=== PATIENT | male | born 1945 | race Caucasian/White ===

== ENCOUNTER 2019-04-21 01:41 | Inpatient (IN) | payer SELFPAY ==
[~2019-04-21] VITALS: Ht 172.7 cm; Wt 61.7 kg
[2019-04-21] MEDS ORDERED: NITROGLYCERIN OINT 1GM/INCH UDPKT TD ONE (03:30)
[2019-04-21] MEDS ORDERED: ASPIRIN 81MG TABLET PO ONE (03:30)
[2019-04-21 03:38] LABS: HEMATOCRIT. 28.3 % (42.0-52.0); HEMOGLOBIN. 9.1 g/dL (14.0-18.0); MEAN CORPUSCULAR HEMOGLOBIN 30.3 pg (28.0-32.0); MEAN CORPUSCULAR VOLUME 94.5 fL (80.0-94.0); MEAN PLATELET VOLUME 7.7 fl (7.4-10.4); PLATELET 258 x1000/uL (130-400); RED BLOOD CELL COUNT 2.99 mill/uL (4.7-6.1); RED CELL DISTRIBUTION WIDTH 13.7 % (11.6-14.6)
[2019-04-21 03:41] LABS: CHLORIDE 109 mEq/L (98-107)
[2019-04-21 03:48] LABS: PROTHROMBIN TIME 11.3 sec (9.6-11.0)
[2019-04-21] MEDS ORDERED: SODIUM BICARBONATE 8.4% 1 MEQ/ML 50ML SYR IV ONE (05:15)
[2019-04-21] MEDS ORDERED: ALBUTEROL (0.083%) 2.5MG/3ML NEB HHN ONE (05:15)
[2019-04-21] MEDS ORDERED: DEXTROSE 50% WATER 50ML SYRINGE IV ONE (05:15)
[2019-04-21] MEDS ORDERED: INSULIN REGULAR (HUMULIN R) 300UNITS/3ML IV ONE (05:15)
[2019-04-21] MEDS ORDERED: GUAIFENESIN 200MG/10ML SUGAR FREE UDC PO PRN (06:45)
[2019-04-21] MEDS ORDERED: HYDROCODONE/ACETAMINOPHEN 5/325MG TABLET PO PRN (06:45)
[2019-04-21] MEDS ORDERED: ACETAMINOPHEN 325MG TABLET PO PRN (06:45)
[2019-04-21] MEDS ORDERED: MORPHINE SULFATE 2 MG/ML CPJ (NOT FOR IM USE) IV PRN (06:45)
[2019-04-21] MEDS ORDERED: MAGNESIUM/ALUMINUM HYDROXIDE/SIMETHICONE 30ML UDC PO PRN (06:45)
[2019-04-21] MEDS ORDERED: CLONIDINE 0.1MG TABLET PO PRN (06:45)
[2019-04-21] MEDS ORDERED: DOCUSATE SODIUM 100MG CAPSULE PO PRN (06:45)
[2019-04-21] MEDS ORDERED: DIPHENHYDRAMINE 50MG/ML VIAL IV PRN (06:45)
[2019-04-21 07:14] LABS: PLATELET ESTIMATE NORMAL
[2019-04-21 08:43] LABS: T4 FREE 1.28 ng/dL (0.76-1.46)
[2019-04-21] MEDS: AMLODIPINE 10MG TABLET PO SCH (09:00)
[2019-04-21] MEDS: CITRIC ACID/SODIUM CITRATE SOLN 30ML UDC PO SCH ×2 (09:00→17:41)
[2019-04-21 09:10] LABS: BG BASE EXCESS -12.8 mmol/L (-2.0-2.0); BG CARBOXYHEMOGLOBIN 0.7 % (0.5-1.5); BG DEOXYHEMOGLOBIN 3.9 % (0.0-5.0); BG FRACTION INSPIRED OXYGEN 21; BG HCO3 ACT 13.2 mmol/L (22.0-26.0); BG METHEMOGLOBIN 0.3 % (0.0-1.5); BG OXYGEN SATURATION 96.1 % (92.0-98.5); BG OXYHEMOGLOBIN 95.1 % (94.0-97.0); BG PCO2 30.8 mmHg (35.0-45.0); BG PH 7.251 (7.350-7.450); BG SAMPLE SITE RIGHT RADIAL; BG TOTAL HEMOGLOBIN 8.2 g/dL (12.0-18.0); BG VENT MODE ROOM AIR
[2019-04-21 09:24] LABS: CREATINE KINASE 60 IU/L (39-308)
[2019-04-21] MEDS: FUROSEMIDE 40MG/4ML VIAL IVP SCH (10:30)
[2019-04-21] MEDS ORDERED: SODIUM POLYSTYRENE SULFONATE 15 G/60 ML BOT PO STA (10:30)
[2019-04-21] MEDS: ENOXAPARIN 30MG/0.3ML SYR SUBCUT SCH (11:32)
[2019-04-21 13:47] LABS: CREATINE KINASE MB FRACTION 2.3 ng/mL (0.5-3.6)
[2019-04-21 16:00] VITALS: BP 128/59
[2019-04-21] MEDS ORDERED: PRAZ1CAP5 PO (16:36)
[2019-04-21] MEDS ORDERED: SACU1TAB7 PO ×2 (16:36)
[2019-04-21] MEDS ORDERED: LACT1CAP97 PO (16:36)
[2019-04-21] MEDS ORDERED: TRAM150C25 PO (16:36)
[2019-04-21] MEDS ORDERED: AMLO5TAB88 PO (16:36)
[2019-04-21] MEDS ORDERED: CLOP75TA33 PO (16:36)
[2019-04-21 16:49] VITALS: BP 128/59
[2019-04-21] MEDS ORDERED: DEXTROSE 50% WATER 50ML SYRINGE IV PRN (17:15)
[2019-04-21] MEDS: BLOOD SUGAR DIAGNOSTIC STRIP TEST SCH ×2 (17:19→21:05)
[2019-04-21] MEDS: ONDANSETRON HCL 4MG/2ML INJ IV PRN (17:40)
[2019-04-21] MEDS: INSULIN LISPRO 100 UNITS/ML SUBCUT SCH ×2 (17:46→21:05)
[2019-04-21] MEDS ORDERED: DEXTROSE 50% WATER 50ML SYRINGE IV NR (18:39)
[2019-04-21] MEDS ORDERED: SODIUM BICARBONATE 8.4% 1 MEQ/ML 50ML SYR IV NR (18:39)
[2019-04-21] MEDS ORDERED: INSULIN REGULAR (HUMULIN R) UD 100 UNITS/ML SYR IV NR (19:00)
[2019-04-21 20:00] VITALS: BP 126/57
[2019-04-22] VITALS (9 sets, daily range): BP systolic 112–153; BP diastolic 53–75
[2019-04-22 01:42] LABS: CREATINE KINASE MB FRACTION 1.7 ng/mL (0.5-3.6)
[2019-04-22] MEDS: SODIUM POLYSTYRENE SULFONATE 15 G/60 ML BOT PO NR (02:10)
[2019-04-22] MEDS ORDERED: DIGOXIN 500MCG/2ML AMP IV SCH (02:45)
[2019-04-22] MEDS ORDERED: NON FORMULARY PATIENT HOME MED XX SCH (04:00)
[2019-04-22] MEDS ORDERED: DILTIAZEM HCL 125 MG in DEXT 5% WATER 100 ML IV SCH (04:30)
[2019-04-22] MEDS: BLOOD SUGAR DIAGNOSTIC STRIP TEST SCH ×4 (06:36→21:00)
[2019-04-22] MEDS: INSULIN LISPRO 100 UNITS/ML SUBCUT SCH ×4 (06:36→21:00)
[2019-04-22] MEDS: FUROSEMIDE 40MG/4ML VIAL IVP SCH (08:28)
[2019-04-22] MEDS: AMLODIPINE 10MG TABLET PO SCH (08:29)
[2019-04-22] MEDS: CITRIC ACID/SODIUM CITRATE SOLN 30ML UDC PO SCH ×3 (08:29→16:41)
[2019-04-22] MEDS: ONDANSETRON HCL 4MG/2ML INJ IV PRN ×2 (08:36→18:09)
[2019-04-22 10:10] LABS: ANTI-NUCLEAR ANTIBODIES DIRECT Positive (Negative)
[2019-04-22] MEDS: ENOXAPARIN 30MG/0.3ML SYR SUBCUT SCH (11:00)
[2019-04-22] MEDS ORDERED: SODIUM BICARBONATE 8.4% 1 MEQ/ML 50ML SYR IV NR (12:48)
[2019-04-22] MEDS ORDERED: DEXTROSE 50% WATER 50ML SYRINGE IV NR (12:48)
[2019-04-22] MEDS ORDERED: ENOXAPARIN 60MG/0.6ML SYR SUBCUT SCH (14:00)
[2019-04-22] MEDS ORDERED: LIDOCAINE HCL 1% 20ML VIAL (Pyxis) INJ ONE (14:37)
[2019-04-22] MEDS ORDERED: SODIUM BICARBONATE 4% (2.4MEQ) 5ML VIAL IV ONE (14:37)
[2019-04-22] MEDS ORDERED: INSULIN REGULAR (HUMULIN R) UD 100 UNITS/ML SYR IV NR (15:00)
[2019-04-22] MEDS ORDERED: HEPARIN 1000 UNITS/ML 10ML ONE (15:01)
[2019-04-22] MEDS ORDERED: ENOXAPARIN 30MG/0.3ML SYR SUBCUT NR (21:00)
[2019-04-22] MEDS: DILTIAZEM HCL 125 MG in DEXT 5% WATER 100 ML IV SCH (22:33)
[2019-04-23] VITALS (25 sets, daily range): BP systolic 114–150; BP diastolic 46–84
[2019-04-23] MEDS: METOPROLOL TARTRATE 50MG TABLET PO SCH ×3 (01:15→22:20)
[2019-04-23] MEDS: SODIUM POLYSTYRENE SULFONATE 15 G/60 ML BOT PO NR (02:42)
[2019-04-23] MEDS: INSULIN LISPRO 100 UNITS/ML SUBCUT SCH ×4 (05:56→22:18)
[2019-04-23] MEDS: BLOOD SUGAR DIAGNOSTIC STRIP TEST SCH ×4 (05:56→22:01)
[2019-04-23 06:29] LABS: LYMPHOCYTES % 7.6 % (20.0-50.0); MEAN CORPUSCULAR HEMOGLOBIN 31.6 pg (28.0-32.0); MEAN CORPUSCULAR VOLUME 91.7 fL (80.0-94.0); MEAN PLATELET VOLUME 7.6 fl (7.4-10.4); MONOCYTES % 10.2 % (2.0-8.0); NEUTROPHILS % 82.2 % (40.0-76.0); PLATELET 254 x1000/uL (130-400); RED BLOOD CELL COUNT 2.25 mill/uL (4.7-6.1); RED CELL DISTRIBUTION WIDTH 13.2 % (11.6-14.6)
[2019-04-23 08:14] LABS: HEMATOCRIT. 20.6 % (42.0-52.0); HEMOGLOBIN. 7.1 g/dL (14.0-18.0)
[2019-04-23] MEDS: FUROSEMIDE 40MG/4ML VIAL IVP SCH (09:00)
[2019-04-23] MEDS: CITRIC ACID/SODIUM CITRATE SOLN 30ML UDC PO SCH ×3 (09:00→17:33)
[2019-04-23] MEDS: AMLODIPINE 10MG TABLET PO SCH (09:01)
[2019-04-23 20:53] LABS: HEMATOCRIT 24.4 % (42.0-52.0); HEMOGLOBIN 8.4 g/dL (14.0-18.0)
[2019-04-23] MEDS ORDERED: DILTIAZEM HCL 125 MG in DEXT 5% WATER 100 ML IV PRN (22:00)
[2019-04-23] MEDS: DILTIAZEM HCL 125 MG in DEXT 5% WATER 100 ML IV SCH (23:00)
[2019-04-24] VITALS (10 sets, daily range): BP systolic 99–165; BP diastolic 47–87
[2019-04-24] MEDS: BLOOD SUGAR DIAGNOSTIC STRIP TEST SCH ×2 (06:21→12:14)
[2019-04-24] MEDS: INSULIN LISPRO 100 UNITS/ML SUBCUT SCH ×2 (07:20→12:21)
[2019-04-24 07:28] LABS: BASOPHILS % 0.1 % (0.0-2.0); HEMATOCRIT. 24.9 % (42.0-52.0); HEMOGLOBIN. 8.4 g/dL (14.0-18.0); LYMPHOCYTES % 14.6 % (20.0-50.0); MEAN CORPUSCULAR HEMOGLOBIN 30.8 pg (28.0-32.0); MEAN PLATELET VOLUME 7.6 fl (7.4-10.4); MONOCYTES % 11.1 % (2.0-8.0); NEUTROPHILS % 74.2 % (40.0-76.0); PLATELET 264 x1000/uL (130-400); RED BLOOD CELL COUNT 2.73 mill/uL (4.7-6.1); RED CELL DISTRIBUTION WIDTH 13.4 % (11.6-14.6)
[2019-04-24] MEDS: FUROSEMIDE 40MG/4ML VIAL IVP SCH (07:47)
[2019-04-24] MEDS: METOPROLOL TARTRATE 50MG TABLET PO SCH (07:48)
[2019-04-24] MEDS: AMLODIPINE 10MG TABLET PO SCH (07:48)
[2019-04-24] MEDS: CITRIC ACID/SODIUM CITRATE SOLN 30ML UDC PO SCH ×2 (07:48→12:20)
[2019-04-26 22:09] LABS: HEPATITIS B SURFACE AB < 3.1 mIU/mL
[2019-04-26 22:19] LABS: HEPATITIS B SURFACE ANTIGEN NEGATIVE
[2019-04-26 22:46] LABS: HEPATITIS A AB IGM NEGATIVE (NEGATIVE)
== END 2019-04-24 16:50 | disposition home or self-care (01) | DRG 190 ==
LOC: ER 02:09 → 6WST 05:02 → ENRESERV 15:28 → 6WST 16:33 → 3WST 04-22 04:43
PROVIDERS: ADMIT Hospitalist; ATTEND Hospitalist
PROC: 02H633Z Insertion of Infusion Device into Right Atrium, Percutaneous Approach (ICD-10-PCS; principal; 2019-04-22)
PROC: B5181ZA Fluoroscopy of Superior Vena Cava using Low Osmolar Contrast, Guidance (ICD-10-PCS; 2019-04-22)
PROC: 5A1D70Z Performance of Urinary Filtration, Intermittent, Less than 6 Hours Per Day (ICD-10-PCS; 2019-04-22)
PROC: 30233N1 Transfusion of Nonautologous Red Blood Cells into Peripheral Vein, Percutaneous Approach (ICD-10-PCS; 2019-04-23)
DX: I21.4 Non-ST elevation (NSTEMI) myocardial infarction (principal); N17.9 Acute kidney failure, unspecified; E87.2 Acidosis; E11.22 Type 2 diabetes mellitus with diabetic chronic kidney disease; E87.5 Hyperkalemia; D64.9 Anemia, unspecified; I12.0 Hypertensive chronic kidney disease with stage 5 chronic kidney disease or end stage renal disease; I25.10 Atherosclerotic heart disease of native coronary artery without angina pectoris; N18.5 Chronic kidney disease, stage 5; I48.0 Paroxysmal atrial fibrillation; E87.70 Fluid overload, unspecified; I51.7 Cardiomegaly; Z90.49 Acquired absence of other specified parts of digestive tract; Z95.5 Presence of coronary angioplasty implant and graft; I25.2 Old myocardial infarction
CPT/HCPCS: 36415; 36600; 71045; 76770; 76937; 77001; 80048; 80053; 80061; 82375; 82550; 82553; 82805; 82962; 83036; 83880; 84132; 84439; 84443; 84484; 85014; 85018; 85025; 85379; 86038; 86160; 86705; 86706; 86709; 86803; 86850; 86900; 86920; 87340; 93005; 93306; 93970; 94640; 99291; C1752; J1160; J1644; J1650; J1815; J1940; J2405; J3490; J7060; P9021